=== PATIENT | male | born 1985 | race Caucasian/White ===

== ENCOUNTER 2020-03-07 16:31 | Emergency (ER) | payer MEDICAID, OTHER ==
[~2020-03-07] VITALS: Ht 177.8 cm; Wt 82.0 kg
[2020-03-07 16:32] VITALS: BP 96/44
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
[2020-03-07] MEDS ORDERED: NEOSPORIN OINT. PKT 1 PACKET ONE (16:58)
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
== END 2020-03-07 17:40 | disposition home or self-care (01) ==
LOC: ED 16:51
DX: S50.312A Abrasion of left elbow, initial encounter (principal); S10.93XA Contusion of unspecified part of neck, initial encounter; R55 Syncope and collapse; F17.200 Nicotine dependence, unspecified, uncomplicated; Y04.8XXA Assault by other bodily force, initial encounter; Y93.89 Activity, other specified; Y92.488 Other paved roadways as the place of occurrence of the external cause; Y99.8 Other external cause status
CPT/HCPCS: 99283